=== PATIENT | male | born 1965 | race Caucasian/White ===

== ENCOUNTER 2020-10-27 19:40 | Inpatient (IN) | payer MEDICAID, SELFPAY ==
[~2020-10-27] VITALS: Ht 167.6 cm; Wt 64.9 kg
[2020-10-27 19:46] VITALS: BP 125/83
--- NOTE | 2020-10-27 20:05 | NUR ---
PT BIB SELF FOR C/O GENERALIZED WEAKNESS OVER THE LAST MONTH. PT REPORTS HE WAS SEEN AT [facility] LAST WEEK AND WAS DIAGNOSED PREDIABETIC AND GIVEN METFORMIN BID. PT REPORTS LOSS OF APPETITE AND INCREASED SLEEPINESS. DENIES N/V/D, FEVER, CHILLS, CP OR SOB. DENIES FALLS OR LOC. MED HX: PREDIABETIC ALLERGIES: NKA
[2020-10-27 20:12] LABS: BASOPHILS % (AUTO) 0.4 % (0.0-2.0); EOSINOPHILS % (AUTO) 0.4 % (0.0-4.0); HEMATOCRIT 44.1 % (36-52); HEMOGLOBIN 14.8 g/dL (12.0-18.0); LYMPHOCYTES # (AUTO) 2.5 K/uL (2.0-11.5); LYMPHOCYTES % (AUTO) 41.5 % (20.5-51.1); MEAN CORPUSCULAR HEMOGLOBIN 28 pg (27-31); MEAN CORPUSCULAR HGB CONC 34 g/dL (33-37); MEAN CORPUSCULAR VOLUME 84.3 fL (80-94); MONOCYTES # (AUTO) 0.5 K/uL (0.8-1.0); MONOCYTES % (AUTO) 7.6 % (1.7-9.3); NEUTROPHILS % (AUTO) 50.1 % (42.2-75.2); PLATELET COUNT (AUTO) 140 K/uL (140-450); RED BLOOD CELL COUNT(AUTO) 5.24 MIL/uL (4.20-6.10); RED CELL DISTRIBUTION WIDTH 13.2 % (11.6-13.7); WHITE BLOOD COUNT (AUTO) 6.1 K/uL (4.8-10.8)
--- NOTE | 2020-10-27 20:22 | NUR ---
EKG PERFORMED AT BEDSIDE. EKG READS SINUS RHYTHM @ 80
[2020-10-27] MEDS ORDERED: NACL 0.9% 2,000 ML IV ONE ×2 (20:30→23:10)
[2020-10-27 20:34] LABS: ALBUMIN 3.1 g/dL (3.4-5.0); ANION GAP 10.1 (8-16); CARBON DIOXIDE 27.4 mmol/L (21-32); POTASSIUM 4.5 mmol/L (3.5-5.1); TOTAL BILIRUBIN 1.3 mg/dL (0.0-1.0)
--- NOTE | 2020-10-27 21:15 | NUR ---
WALKED UA SAMPLE TO LAB AND GIVEN TO CLS.
[2020-10-27 21:23] LABS: APPEARANCE,URINE CLEAR (CLEAR); BILIRUBIN,URINE NEGATIVE (NEGATIVE); BLOOD, URINE NEGATIVE (NEGATIVE); COLOR,URINE YELLOW (YELLOW); LEUKOCYTE ESTERASE ,URINE NEGATIVE (NEGATIVE); NITRITE, URINE NEGATIVE (NEGATIVE); UGLUCOSE 3+ (NEGATIVE)
[2020-10-27 21:31] LABS: BARBITURATE, URINE NEGATIVE ng/ml (NEG <=200); BENZODIAZEPINE, URINE NEGATIVE ng/mL (NEG <=200)
[2020-10-27 21:32] LABS: CANNABINOID, URINE NEGATIVE ng/mL (NEG <=50); COCAINE, URINE POSITIVE ng/mL (NEG <=300); OPIATE, URINE NEGATIVE ng/mL (NEG <=2000); PHENCYCLIDINE SCREEN,URINE NEGATIVE ng/mL (NEG <=25)
[2020-10-27] MEDS ORDERED: INSULIN REGULAR, HUMAN 100 UNIT/ML VIAL IV ONE (21:55)
--- NOTE | 2020-10-27 22:00 | NUR ---
JENNIFER COLLECTED AND WALKED TO LAB BY REGINO BOWEN.
[2020-10-27] MEDS ORDERED: METF500S6 PO (22:07)
[2020-10-27] MEDS ORDERED: NACL 0.9% 1,000 ML IV ONE (22:10)
--- NOTE | 2020-10-27 22:19 | NUR ---
SPOKE WITH PTS FRIEND TARUN WITH CONSENT. UPDATING REGARDING PT STATUS.
[2020-10-27] MEDS ORDERED: guaiFENesin DM 200/20 MG-10 ML 10 ML UDC PO PRN (23:05)
[2020-10-27] MEDS ORDERED: DOCUSATE SODIUM 100 MG GELCAP PO PRN (23:05)
[2020-10-27] MEDS ORDERED: ACETAMINOPHEN 325 MG TAB PO PRN (23:05)
[2020-10-27] MEDS ORDERED: ONDANSETRON 4 MG/2 ML VIAL IM/IVP PRN (23:05)
[2020-10-27] MEDS ORDERED: ZOLPIDEM 5 MG TAB PO PRN (23:05)
[2020-10-27] MEDS ORDERED: HYDROcodone/APAP 7.5/325 MG 1 TAB PO PRN (23:05)
[2020-10-27] MEDS: NACL 0.9% 1,000 ML IV SCH (23:05)
[2020-10-27] MEDS ORDERED: POTASSIUM CHLORIDE 10 MEQ TABER PO PRN (23:05)
[2020-10-27] MEDS ORDERED: DEXTROSE 50% 50 ML SYR IVP PRN (23:10)
[2020-10-27] MEDS ORDERED: metFORMIN 500 MG TAB PO SCH (23:10)
--- NOTE | 2020-10-27 23:11 | NUR ---
Patient will be admitted to care of MD GEOVANNI. Admited to [facility]. Will go to room 106B. Belongings list completed. Report to REGINO JACOME.
--- NOTE | 2020-10-27 23:21 | NUR ---
X-Ray at bedside.
--- NOTE | 2020-10-27 23:24 | NUR ---
PT TAKEN TO [facility] 106B VIA W.C.
[2020-10-27 23:30] VITALS: BP 118/77
[2020-10-27 23:44] LABS: CHOL/HDL RATIO 3.5 (1-4.5); FREE T4 (FREE THYROXINE) 1.04 ng/dL (0.76-1.46); MAGNESIUM 1.5 mg/dL (1.8-2.4); THYROID STIMULATING HORMONE 0.5 uIU/mL (0.34-3.74)
--- NOTE | 2020-10-27 23:45 | NUR ---
ADMITTED THE PATIENT FROM ER VIA WHEELCHAIR. PT A/A/OX4, AMBULATES WITH JUST STANDBY ASSIST. PATIENT DENIES ANY CHEST PAIN, PALPITATIONS AND DIZZINESS. ORIENTED THE PATIENT TO THE ROOM SETTING AND USE OF CALL LIGHT SYSTEM. PATIENT VITAL SIGNS STABLE, AFEBRILE, SATING 100% ON RA. PATIENT VERBALIZED UNDERSTANDING WITH THE POC. CALL LIGHT WITHIN REACH. WILL CONTINUE OBSERVATION.
[2020-10-28] MEDS: glipiZIDE 10 MG TAB PO SCH ×3 (00:22→16:34)
--- NOTE | 2020-10-28 02:00 | NUR ---
PATIENT ASLEEP AT THIS TIME. VISIBLE CHEST RISE AND FALL NOTED. NOT IN ANY DISTRESS. WILL CONTINUE TO OBSERVE.
[2020-10-28 04:00] VITALS: BP 107/68
--- NOTE | 2020-10-28 04:00 | NUR ---
VITAL SIGNS STABLE,AFEBRILE, SATING 98% ON RA. NO COMPLAIN OF PAIN AT THIS TIME. NOT IN ANY DISTRESS. CALL LIGHT WITHIN REACH. WILL CONTINUE OBSERVATION.
[2020-10-28] MEDS: NACL 0.9% 1,000 ML IV SCH ×3 (05:45→20:43)
--- NOTE | 2020-10-28 06:00 | NUR ---
NO ACUTE EVENT THROUGHOUT THE NIGHT. PATIENT STABLE. PATIENT NOT IN ANY DISTRESS. NO COMPLAIN AT THIS TIME. ALL NEEDS ATTENDED. CALL LIGHT WITHIN REACH. WILL ENDORSE THE PATIENT TO THE ONCOMING RN FOR CONTINUITY OF CARE.
[2020-10-28 06:35] LABS: BASOPHILS % (AUTO) 0.3 % (0.0-2.0); EOSINOPHILS % (AUTO) 0.5 % (0.0-4.0); HEMATOCRIT 39.6 % (36-52); HEMOGLOBIN 13.2 g/dL (12.0-18.0); LYMPHOCYTES # (AUTO) 4.3 K/uL (2.0-11.5); LYMPHOCYTES % (AUTO) 52.3 % (20.5-51.1); MEAN CORPUSCULAR HEMOGLOBIN 29 pg (27-31); MEAN CORPUSCULAR HGB CONC 33 g/dL (33-37); MEAN CORPUSCULAR VOLUME 86.2 fL (80-94); MONOCYTES # (AUTO) 0.5 K/uL (0.8-1.0); MONOCYTES % (AUTO) 6.5 % (1.7-9.3); NEUTROPHILS # (AUTO) 3.3 K/uL (1.8-7.7); NEUTROPHILS % (AUTO) 40.4 % (42.2-75.2); PLATELET COUNT (AUTO) 131 K/uL (140-450); RED BLOOD CELL COUNT(AUTO) 4.59 MIL/uL (4.20-6.10); RED CELL DISTRIBUTION WIDTH 13.2 % (11.6-13.7); WHITE BLOOD COUNT (AUTO) 8.2 K/uL (4.8-10.8)
[2020-10-28] MEDS: BLOOD GLUCOSE MONITORING 1 DEV DEV FS SCH ×4 (06:37→20:42)
[2020-10-28] MEDS: INSULIN LISPRO SLIDING SCALE 100 UNITS/ML VIAL SUBQ PRN ×4 (06:37→20:41)
[2020-10-28 06:39] LABS: ANION GAP 9.5 (8-16); CREATININE 0.7 mg/dL (0.6-1.3); POTASSIUM 3.5 mmol/L (3.5-5.1)
[2020-10-28 06:57] LABS: PROTHROMBIN TIME 11.2 secs (10.8-13.4)
--- NOTE | 2020-10-28 07:44 | NUR ---
Dr Peña notified of Mg level 1.5. Telephone order received for Mag-Ox 800mg po daily. Order noted and carried out.
--- NOTE | 2020-10-28 07:52 | NUR ---
PATIENT HAS BEEN SCREENED AND CATEGORIZED HIGH NUTRITION RISK. PATIENT WILL BE SEEN WITHIN 1-2 DAYS OF ADMISSION. 10/28/20-10/29/[address]
[2020-10-28 08:00] VITALS: BP 108/61
--- NOTE | 2020-10-28 08:30 | NUR ---
Pt sitting up in bed, eating breakfast. He is AAOx4, denies any pain or discomfort. Pt states he still feels generally weak, but better than when he was admitted. Right AC 20G IV intact with ongoing NS @ 125ml/hr.
[2020-10-28] MEDS: PANTOPRAZOLE 40 MG TABEC PO SCH (08:33)
[2020-10-28] MEDS: MAGNESIUM OXIDE 400 MG TAB PO SCH (08:34)
--- NOTE | 2020-10-28 08:45 | NUR ---
Clarified Glucophage order with pharmacist. Per Haley, she will update order to reflect glucophage 1000mg.
[2020-10-28] MEDS ORDERED: metFORMIN 500 MG TAB PO SCH (08:50)
--- NOTE | 2020-10-28 14:00 | NUR ---
Informed patient that he needs to remain NPO for abdominal ultrasound, may eat dinner after US. Patient verbalized understanding and agree with care plan. Pt resting in bed at this time, no signs of distress, respirations even & nonlabored in room air. Right AC IV intact with ongoing NS @ 125ml/hr.
--- NOTE | 2020-10-28 14:15 | NUR ---
10/28/20 RD INITIAL ASSESSMENT COMPLETED PLEASE REFER TO NUTRITION ASSESSMENT UNDER CARE ACTIVITY FOR ESTIMATED NUTRITIONAL NEEDS. [facility]. [facility]. RD PROVIDED NUTRITION EDUCATION FOR DIABETES 3. RD TO FOLLOW-UP 3-5 DAYS, MODERATE RISK LISA ALLEN RD
[2020-10-28 16:00] VITALS: BP 121/80
[2020-10-28] MEDS: metFORMIN 500 MG TAB PO SCH (16:35)
--- NOTE | 2020-10-28 18:00 | NUR ---
US tech at bedside for abd US.
--- NOTE | 2020-10-28 19:00 | NUR ---
RECEIVED BEDSIDE REPORT EARLIER REGARDING THE PT FOR CONTINUITY OF CARE. PT A/A/OX4, SITTING UP ON BED WATCHING TV. PT NOT IN ANY DISTRESS. NO COMPLAIN OF CHEST PAIN, PALPITATIONS AND DIZZINESS. IVF INFUSING ORDERED. CALL LIGHT WITHIN REACH. WILL CONTINUE POC.
--- NOTE | 2020-10-28 19:05 | NUR ---
Report given to pm nurse.
[2020-10-28 20:00] VITALS: BP 114/74
--- NOTE | 2020-10-28 22:00 | NUR ---
ADMINISTERED ALL THE SCHEDULED MEDICATIONS ORDERED. PT TOLERATED IT WELL NO ADVERSE DRUG REACTION NOTED. NO COMPLAIN FROM THE PATIENT. WILL CONTINUE POC.
--- NOTE | 2020-10-29 | NUR ---
PATIENT STILL AWAKE AND ALERT ,LAYING IN BED WATCHING TV. NOT IN ANY DISTRESS AND NO COMPLAIN AT THIS TIME.
[2020-10-29] MEDS: NACL 0.9% 1,000 ML IV SCH ×4 (01:45→21:45)
--- NOTE | 2020-10-29 02:00 | NUR ---
PATIENT ASLEEP AT THIS TIME. VISIBLE CHEST RISE AND FALL NOTED. SITTER AT THE BEDSIDE. WILL CONTINUE OBSERVATION.
[2020-10-29 04:00] VITALS: BP 114/63
--- NOTE | 2020-10-29 04:00 | NUR ---
PATIENT VITALS SIGNS STABLE, AFEBRILE, SATING 95% ON RA. NOT IN ANY DISTRESS NO COMPLAIN AT THIS TIME. SAFETY MEASURES IN PLACED.
[2020-10-29 06:09] LABS: BASOPHILS % (AUTO) 0.5 % (0.0-2.0); EOSINOPHILS % (AUTO) 0.5 % (0.0-4.0); HEMOGLOBIN 13.3 g/dL (12.0-18.0); LYMPHOCYTES # (AUTO) 5.1 K/uL (2.0-11.5); LYMPHOCYTES % (AUTO) 56.6 % (20.5-51.1); MEAN CORPUSCULAR HEMOGLOBIN 28 pg (27-31); MEAN CORPUSCULAR HGB CONC 33 g/dL (33-37); MEAN CORPUSCULAR VOLUME 85.1 fL (80-94); MONOCYTES # (AUTO) 0.5 K/uL (0.8-1.0); MONOCYTES % (AUTO) 5.7 % (1.7-9.3); NEUTROPHILS # (AUTO) 3.3 K/uL (1.8-7.7); NEUTROPHILS % (AUTO) 36.7 % (42.2-75.2); PLATELET COUNT (AUTO) 125 K/uL (140-450); RED CELL DISTRIBUTION WIDTH 13.3 % (11.6-13.7)
[2020-10-29] MEDS: glipiZIDE 10 MG TAB PO SCH ×2 (06:30→17:21)
[2020-10-29 06:35] LABS: ANION GAP 10.7 (8-16); CARBON DIOXIDE 23.8 mmol/L (21-32); CREATININE 0.7 mg/dL (0.6-1.3); POTASSIUM 3.5 mmol/L (3.5-5.1)
[2020-10-29] MEDS: INSULIN LISPRO SLIDING SCALE 100 UNITS/ML VIAL SUBQ PRN ×3 (06:35→17:27)
[2020-10-29] MEDS: BLOOD GLUCOSE MONITORING 1 DEV DEV FS SCH ×4 (06:35→20:44)
--- NOTE | 2020-10-29 07:27 | NUR ---
ENDORSED THE PATIENT TO REGINO ANTHONY FOR CONTINUITY OF CARE. PT STABLE. SIGNING OFF.
--- NOTE | 2020-10-29 07:30 | NUR ---
RECEIVED BEDSIDE REPORT FROM INDUSTRIAL SERVICE TECHNICIAN NURSE FOR CONTINUITY OF CARE. PT A/A/OX4, SITTING UP ON BED WATCHING TV. RESPIRATIONS EVEN AND UNLABORED. PT NOT IN ANY DISTRESS. NO COMPLAIN OF PAIN AT THE MOMENT. SKIN IS WARM AND DRY. IV SITE ON RAC 20 G INTACT PATENT. IVF INFUSING ORDERED. PLAN OF CARE DISCUSSED. SAFETY PRECAUTIONS IN PLACE. CALL LIGHT WITHIN REACH. WILL CONTINUE TO MONITOR.
[2020-10-29 08:00] VITALS: BP 111/69
[2020-10-29] MEDS: MAGNESIUM OXIDE 400 MG TAB PO SCH (08:42)
[2020-10-29] MEDS: metFORMIN 500 MG TAB PO SCH ×2 (08:42→17:21)
[2020-10-29] MEDS: PANTOPRAZOLE 40 MG TABEC PO SCH (08:43)
--- NOTE | 2020-10-29 09:00 | NUR ---
ALL SCHEDULED MEDS GIVEN. PT IS STABLE. NO DISTRESS NOTED. WILL CONTINUE TO MONITOR.
--- NOTE | 2020-10-29 11:59 | NUR ---
BLOOD GLUCOSE CHECK WAS 225. INSULIN COVERAGE NEEDED. ADMINISTERED 4 UNITS OF INSULIN SQ PER MD ORDERED.
--- NOTE | 2020-10-29 14:15 | NUR ---
CHECKED ON PATIENT. PT IS STABLE. NO DISTRESS NOTED. WILL CONTINUE TO MONITOR.
[2020-10-29 16:00] VITALS: BP 111/64
--- NOTE | 2020-10-29 17:29 | NUR ---
BLOOD SUGAR CHECK WAS 177. INSULIN COVERAGE NEEDED. ADMINISTERED 2 UNITS OF INSULIN PER MD ORDERED.
[2020-10-29 18:12] LABS: T4 (THYROXINE) 11.4 ug/dL (4.5 - 12.0)
--- NOTE | 2020-10-29 19:30 | NUR ---
ENDORSED TO DIRECTOR RECORDS MANAGEMENT NURSE FOR CONTINUITY OF CARE. PT IS STABLE.
--- NOTE | 2020-10-29 19:31 | NUR ---
RECEIVED PATIENT FROM AM NURSE FOR CONTINUITY OF CARE. PATIENT A/A/O X4. RESTING IN BED, WATCHING TV. RESPIRATORY EVEN AND UNLABORED, ON ROOM AIR, NO SIGN OF RESPIRATORY DISTRESS NOTED. SKIN WARM, DRY, NON DIAPHORETIC. IV ON RIGHT AC 20G, INTACT AND PATENT, IS INFUSING FLUID ORDER. CONTINENT TO USE URINAL. DENIES ANY PAIN OR DISCOMFORT. ABLE TO MAKE NEEDS KNOWN. PLAN OF CARE DISCUSSED, PATIENT VERBALIZED UNDERSTANDING. CALL LIGHT WITHIN REACH. WILL CONTINUE TO MONITOR.
[2020-10-29 20:00] VITALS: BP 113/67
--- NOTE | 2020-10-29 20:44 | NUR ---
BLOOD SUGAR CHECK 133, NO INSULIN TO COVER. SCHEDULE MEDICATION GIVEN WITH EDUCATION. PATIENT VERBALIZED UNDERSTANDING. CALL LIGHT WITHIN REACH. WILL CONTINUE TO MONITOR.
[2020-10-29] MEDS ORDERED: ATORVASTATIN 20 MG TAB PO SCH (21:00)
--- NOTE | 2020-10-29 22:00 | NUR ---
PATIENT IS AWAKE, WATCHING TV, NO SIGN OF DISTRESS NOTED. CALL LIGHT WITHIN REACH. WILL CONTINUE TO MONITOR.
--- NOTE | 2020-10-30 | NUR ---
ROUND CHECK. PATIENT IS PLAYING GAME ON HIS CELL PHONE. NO SIGN OF DISTRESS NOTED. CALL LIGHT WITHIN REACH. WILL CONTINUE TO MONITOR.
--- NOTE | 2020-10-30 02:00 | NUR ---
ROUND CHECK. PATIENT IS SLEEPING, CHEST RISE AND FALL, NO SIGN OF DISTRESS NOTED. CALL LIGHT WITHIN REACH. WILL CONTINUE TO MONITOR.
[2020-10-30 04:00] VITALS: BP 113/64
--- NOTE | 2020-10-30 04:00 | NUR ---
ROUND CHECK. PATIENT IS SLEEPING, CHEST RISE AND FALL, NO SIGN OF DISTRESS NOTED. CALL LIGHT WITHIN REACH. WILL CONTINUE TO MONITOR.
[2020-10-30] MEDS: NACL 0.9% 1,000 ML IV SCH ×2 (04:25→11:37)
[2020-10-30 06:36] LABS: BASOPHILS % (AUTO) 0.4 % (0.0-2.0); EOSINOPHILS # (AUTO) 0.1 K/uL (0-0.4); EOSINOPHILS % (AUTO) 0.7 % (0.0-4.0); HEMATOCRIT 39.5 % (36-52); HEMOGLOBIN 13.2 g/dL (12.0-18.0); LYMPHOCYTES # (AUTO) 5.3 K/uL (2.0-11.5); MEAN CORPUSCULAR HEMOGLOBIN 29 pg (27-31); MEAN CORPUSCULAR HGB CONC 33 g/dL (33-37); MEAN CORPUSCULAR VOLUME 85.7 fL (80-94); MONOCYTES # (AUTO) 0.6 K/uL (0.8-1.0); MONOCYTES % (AUTO) 6.4 % (1.7-9.3); NEUTROPHILS # (AUTO) 2.9 K/uL (1.8-7.7); PLATELET COUNT (AUTO) 128 K/uL (140-450); RED BLOOD CELL COUNT(AUTO) 4.61 MIL/uL (4.20-6.10); RED CELL DISTRIBUTION WIDTH 13.2 % (11.6-13.7); WHITE BLOOD COUNT (AUTO) 8.8 K/uL (4.8-10.8)
[2020-10-30] MEDS: BLOOD GLUCOSE MONITORING 1 DEV DEV FS SCH ×2 (06:37→11:38)
[2020-10-30] MEDS: INSULIN LISPRO SLIDING SCALE 100 UNITS/ML VIAL SUBQ PRN ×2 (06:38→11:38)
[2020-10-30] MEDS: glipiZIDE 10 MG TAB PO SCH (06:38)
--- NOTE | 2020-10-30 06:38 | NUR ---
BLOOD SUGAR CHECK 211, 4UNITS INSULIN GIVEN WITH EDUCATION. PATIENT VERBALIZED UNDERSTANDING. NO SIGN OF DISTRESS NOTED. CALL LIGHT WITHIN REACH. WILL CONTINUE TO MONITOR.
[2020-10-30 06:51] LABS: CARBON DIOXIDE 23.4 mmol/L (21-32); CREATININE 0.7 mg/dL (0.6-1.3); POTASSIUM 3.4 mmol/L (3.5-5.1)
[2020-10-30 07:20] LABS: LYMPHOCYTES % (AUTO) 59.8 % (20.5-51.1); NEUTROPHILS % (AUTO) 32.7 % (42.2-75.2)
--- NOTE | 2020-10-30 07:23 | NUR ---
ENDORSED PATIENT TO AM NURSE FOR CONTINUITY OF CARE. PATIENT IS STABLE.
--- NOTE | 2020-10-30 07:30 | NUR ---
RECEIVED BEDSIDE REPORT FROM NUCLEAR MEDICINE PET CT TECHNOLOGIST NURSE FOR CONTINUITY OF CARE. PT A/A/OX4, SITTING UP ON BED WATCHING TV. RESPIRATIONS EVEN AND UNLABORED. PT NOT IN ANY DISTRESS. NO COMPLAIN OF PAIN AT THE MOMENT. SKIN IS WARM AND DRY. IV SITE ON RAC 20 G INTACT PATENT. IVF INFUSING ORDERED. PLAN OF CARE DISCUSSED. SAFETY PRECAUTIONS IN PLACE. CALL LIGHT WITHIN REACH. WILL CONTINUE TO MONITOR.
[2020-10-30 08:00] VITALS: BP 116/68
[2020-10-30] MEDS ORDERED: lisinopriL 5 MG TAB PO SCH (09:00)
[2020-10-30] MEDS: metFORMIN 500 MG TAB PO SCH (09:00)
[2020-10-30] MEDS: MAGNESIUM OXIDE 400 MG TAB PO SCH (09:07)
[2020-10-30] MEDS: PANTOPRAZOLE 40 MG TABEC PO SCH (09:07)
--- NOTE | 2020-10-30 09:30 | NUR ---
SCHEDULED MEDS GIVEN. PT IS STABLE. DENIES PAIN AND NO S/S OF DISTRESS NOTED. WILL CONTINUE TO MONITOR.
[2020-10-30] MEDS ORDERED: INSU100S22 SUBQ (11:23)
[2020-10-30] MEDS ORDERED: GLIP10TA12 PO (11:23)
[2020-10-30] MEDS ORDERED: METF500T PO (11:23)
[2020-10-30] MEDS ORDERED: ATOR20TA40 PO (11:23)
[2020-10-30] MEDS ORDERED: PANT40EC56 PO (11:23)
[2020-10-30] MEDS ORDERED: LISI-648 PO (11:23)
--- NOTE | 2020-10-30 11:38 | NUR ---
BLOOD GLUCOSE CHECK WAS 191. INSULIN COVERAGE NEEDED. ADMINISTERED 2 UNITS OF INSULIN PER MD ORDERED.
[2020-10-30 12:42] VITALS: BP 116/68
--- NOTE | 2020-10-30 13:00 | NUR ---
ENDORSED DISCHARGE INSTRUCTIONS TO PATIENT. PATIENT VERBALIZED UNDERSTANDING AND SIGNED THE DISCHARGE FORMS.
--- NOTE | 2020-10-30 13:44 | NUR ---
PATIENT DISCHARGED OFF THE UNIT. PICKED UP BY FAMILY AT THE FRONT LOBBY. IV AND ID BAND REMOVED. PT WAS STABLE.
== END 2020-10-30 14:28 | disposition home or self-care (01) | DRG 420 ==
LOC: MED 19:40 → MTU 22:09
PROVIDERS: ADMIT Family Medicine; ATTEND Family Medicine
DX: E11.00 Type 2 diabetes mellitus with hyperosmolarity without nonketotic hyperglycemic-hyperosmolar coma (NKHHC) (principal); G92 Toxic encephalopathy; D68.59 Other primary thrombophilia; D69.6 Thrombocytopenia, unspecified; E44.1 Mild protein-calorie malnutrition; E87.8 Other disorders of electrolyte and fluid balance, not elsewhere classified; E11.65 Type 2 diabetes mellitus with hyperglycemia; E87.1 Hypo-osmolality and hyponatremia; F17.210 Nicotine dependence, cigarettes, uncomplicated; F19.10 Other psychoactive substance abuse, uncomplicated; N20.0 Calculus of kidney; Z20.822 Contact with and (suspected) exposure to COVID-19; Z56.0 Unemployment, unspecified; Z68.23 Body mass index [BMI] 23.0-23.9, adult
CPT/HCPCS: 36415; 71045; 76700; 80048; 80053; 80305; 81003; 82150; 82948; 83036; 83690; 83735; 83880; 84100; 84436; 84439; 84443; 84479; 84484; 85025; 85610; 85730; 87081; 93005; 96360; 96361; 99285; J1644; J1815

== ENCOUNTER 2021-07-11 23:55 | Emergency (ER) | payer MEDICAID, SELFPAY ==
[~2021-07-11] VITALS: Ht 167.6 cm; Wt 83.9 kg
[~2021-07-11 23:55] MED LIST: ATOR20TA40 PO; GLIP10TA12 PO; INSU100S22 SUBQ; LISI5TAB24 PO; METF500T PO; PANT40EC56 PO
[2021-07-12 00:07] VITALS: BP 130/73
--- NOTE | 2021-07-12 00:14 | NUR ---
PT AMBULATORY TO BED 02 W STEADY GAIT.
[2021-07-12] MEDS ORDERED: NACL 0.9% 1,000 ML IV ONE (00:25)
[2021-07-12] MEDS ORDERED: INSULIN REGULAR, HUMAN 100 UNIT/ML VIAL IV ONE (00:25)
[2021-07-12 00:35] LABS: BASOPHILS % (AUTO) 0.4 % (0.0-2.0); EOSINOPHILS # (AUTO) 0.1 K/uL (0-0.4); EOSINOPHILS % (AUTO) 0.7 % (0.0-4.0); HEMATOCRIT 42.5 % (36-52); HEMOGLOBIN 14.4 g/dL (12.0-18.0); LYMPHOCYTES % (AUTO) 42.3 % (20.5-51.1); MEAN CORPUSCULAR HEMOGLOBIN 28 pg (27-31); MEAN CORPUSCULAR HGB CONC 34 g/dL (33-37); MEAN CORPUSCULAR VOLUME 82.9 fL (80-94); MONOCYTES # (AUTO) 0.5 K/uL (0.8-1.0); MONOCYTES % (AUTO) 7.3 % (1.7-9.3); NEUTROPHILS # (AUTO) 3.5 K/uL (1.8-7.7); NEUTROPHILS % (AUTO) 49.3 % (42.2-75.2); PLATELET COUNT (AUTO) 126 K/uL (140-450); RED BLOOD CELL COUNT(AUTO) 5.13 MIL/uL (4.20-6.10); RED CELL DISTRIBUTION WIDTH 12.9 % (11.6-13.7); WHITE BLOOD COUNT (AUTO) 7.1 K/uL (4.8-10.8)
[2021-07-12 00:52] LABS: ALBUMIN 2.9 g/dL (3.4-5.0); ANION GAP 13.7 (8-16); ASPARTATE AMINOTRANSFERASE 147 U/L (15-37); CARBON DIOXIDE 27.1 mmol/L (21-32); CHLORIDE 98 mmol/L (98-107); CREATININE 0.9 mg/dL (0.6-1.3); GFR ARICAN-AMERICAN 112 mL/min (>90); POTASSIUM 5.8 mmol/L (3.5-5.1); SODIUM SERUM 133 mmol/L (136-145); TOTAL BILIRUBIN 0.8 mg/dL (0.0-1.0); UREA NITROGEN, BLOOD 13 mg/dL (7-18)
[2021-07-12 00:53] VITALS: BP 122/75
[2021-07-12 00:57] LABS: GLUCOSE 453 mg/dL (74-106)
--- NOTE | 2021-07-12 01:45 | NUR ---
Pt asleep without distress. Breathing easy and unlabored. NS infusion completed without s/sx of complication. Pt aroused. Repeated accucheck: 167mg/dL. Pt has no needs.
--- NOTE | 2021-07-12 01:55 | NUR ---
Patient discharged with v/s stable. Written and verbal after care instructions given and explained. Patient verbalized understanding. Ambulatory with steady gait. All questions addressed prior to discharge. Advised to follow up with PMD.
== END 2021-07-12 01:55 | disposition home or self-care (01) ==
LOC: MED 23:55
DX: E11.65 Type 2 diabetes mellitus with hyperglycemia (principal); Z79.899 Other long term (current) drug therapy; Z79.4 Long term (current) use of insulin
CPT/HCPCS: 36415; 80053; 84484; 85025; 96361; 96374; 99283; J1815; J7030

== ENCOUNTER 2021-08-15 18:09 | Emergency (ER) | payer MEDICAID ==
[~2021-08-15] VITALS: Ht 167.6 cm; Wt 61.9 kg
[~2021-08-15 18:09] MED LIST changes: +METF-564 PO; -METF500T PO
[2021-08-15 18:20] VITALS: BP 139/86
[2021-08-15 18:50] LABS: BASOPHILS % (AUTO) 0.3 % (0.0-2.0); EOSINOPHILS % (AUTO) 0.3 % (0.0-4.0); HEMATOCRIT 42.9 % (36-52); HEMOGLOBIN 14.2 g/dL (12.0-18.0); LYMPHOCYTES % (AUTO) 40.9 % (20.5-51.1); MEAN CORPUSCULAR HEMOGLOBIN 28 pg (27-31); MEAN CORPUSCULAR HGB CONC 33 g/dL (33-37); MEAN CORPUSCULAR VOLUME 84.3 fL (80-94); MONOCYTES # (AUTO) 0.3 K/uL (0.8-1.0); MONOCYTES % (AUTO) 5.9 % (1.7-9.3); NEUTROPHILS # (AUTO) 2.5 K/uL (1.8-7.7); NEUTROPHILS % (AUTO) 52.6 % (42.2-75.2); PLATELET COUNT (AUTO) 98 K/uL (140-450); RED BLOOD CELL COUNT(AUTO) 5.09 MIL/uL (4.20-6.10); RED CELL DISTRIBUTION WIDTH 12.9 % (11.6-13.7); WHITE BLOOD COUNT (AUTO) 4.8 K/uL (4.8-10.8)
[2021-08-15] MEDS: NACL 0.9% 1,000 ML IV ONE ×2 (19:02→20:29)
[2021-08-15 19:10] LABS: ALBUMIN 2.9 g/dL (3.4-5.0); ANION GAP 14.5 (8-16); CREATININE 1.1 mg/dL (0.6-1.3); POTASSIUM 4.5 mmol/L (3.5-5.1); TOTAL BILIRUBIN 1.4 mg/dL (0.0-1.0)
[2021-08-15] MEDS: INSULIN LISPRO 100 UNITS/ML VIAL SUBQ ONE (21:13)
[2021-08-15] MEDS ORDERED: CEPH-588 PO (21:59)
[2021-08-15 22:25] VITALS: BP 120/81
== END 2021-08-15 22:25 | disposition home or self-care (01) ==
LOC: MED 18:09
DX: E86.0 Dehydration (principal); R21 Rash and other nonspecific skin eruption; R05.9 Cough, unspecified; E11.65 Type 2 diabetes mellitus with hyperglycemia; I10 Essential (primary) hypertension; Z79.2 Long term (current) use of antibiotics; Z79.899 Other long term (current) drug therapy; Z79.4 Long term (current) use of insulin
CPT/HCPCS: 36415; 80053; 82009; 82948; 83605; 85025; 96360; 96361; 96372; 99285; J1815; J7030